=== PATIENT | female | born 1965 | race Caucasian/White ===

== ENCOUNTER → 2016-10-13 | Outpatient (CLI) | payer BC ==
[~2016-10-13] MED LIST: BENICAR HCT 12.1 TAB PO; BISOPROLOL 5MG T5 MG PO; CARVEDILOL6.25 M1 PO; CLONIDINE 0.2M0.2 MG PO; HYDROCHLOROTHIA25 M1 PO; MOBIC15 MG PO; PERCOCET 5/3251 EACH PO; PROTONIX 40MG T40 MG PO; SYNTHROID0.025 MG PO; VERAPAMIL HCL180 MG PO; VITAMIN D50000 IU PO; ZIAC 10 MG-6.251 TAB PO
[2016-10-13 10:39] LABS: BUN 11 mg/dL (7-18)
[2016-10-13 10:40] LABS: GFR (ESTIMATED) 77 ML/MIN (59-)
== END ==
LOC: LAB 08:19
PROVIDERS: Nurse Practitioner Family
DX: I10 Essential (primary) hypertension (principal); E55.9 Vitamin D deficiency, unspecified; E03.9 Hypothyroidism, unspecified